=== PATIENT | female | born 1955 | race Caucasian/White ===

== ENCOUNTER → 2018-03-07 | Outpatient (CLI) | payer OTHER ==
[~2018-03-07] MED LIST: ATOR10TA24 PO; ATR10 PO; AZI250 PO; BUSP7.5T7 PO; ESOM40CA42 PO; EST3 PO; FLU20 PO; FLUO40CA76 PO; HCTZ25 PO; LIS20 PO; MULT1CAP59 PO; OXYGEN INH; PANT40TA65 PO; PER PO
--- NOTE | 2018-03-08 13:31 | RADIOLOGY IMAGING REPORT ---
FACILITY: [facility] PATIENT NAME: KAYODE SANCHEZ : [id number] MR: [id number] V: [id number] EXAM DATE: [id number] ORDERING PHYSICIAN: ABHISHEK BUTT TECHNOLOGIST: Isabel Londono PROCEDURE:BILATERAL DIGITAL SCREENING MAMMOGRAM WITH CAD ASSISTED INTERPRETATION & 3D TOMOSYNTHESIS COMPARISON:Prior mammograms 02/05/17, 12/20/15, 12/15/14, 11/12/13, 10/31/12, 05/18/11. INDICATIONS:SCREENING FINDINGS: The breasts are almost entirely fatty. The parenchymal pattern has remained stable allowing for difference in mammographic technique & patient positioning. There is no evidence of malignant appearing mass, malignant appearing calcifications or other secondary sign of malignancy in either breast. DIAGNOSTIC CATEGORY 1--NEGATIVE. RECOMMENDATIONS: ROUTINE MAMMOGRAM AND CLINICAL EVALUATION. IMPRESSION: BIRADS 1: Negative. No significant abnormality is seen. Dictated by: Joyce Wisdom M.D. on 03/07/2018 at 17:17 Transcribed by: HALEY on 03/08/2018 at 8:35 Approved by: Joyce Wisdom M.D. on 03/08/2018 at 13:30 [facility]
== END ==
LOC: MAMO 00:45
PROVIDERS: ATTEND Physician Assistant
DX: Z12.31 Encounter for screening mammogram for malignant neoplasm of breast (principal)
CPT/HCPCS: 77063; 77067